=== PATIENT | male | born 1975 | race Caucasian/White ===

== ENCOUNTER 2018-11-08 06:21 | Day surgery (SDC) | payer OTHER ==
[~2018-11-08 06:21] MED LIST: AMBIEN10 MG PO; COZAAR25 MG PO; LISINOPRIL5 MG PO; METOPROLOL SUCC25 MG PO; NORVASC2.5 MG PO; SYNTHROID50 MCG PO; XANAX XR0.5 MG PO
[2018-11-08] MEDS ORDERED: PERCOCET 5-3251 EACH PO (10:04)
== END 2018-11-08 12:20 | disposition home or self-care (01) ==
LOC: CIR.AMB 06:21
DX: E21.0 Primary hyperparathyroidism (principal)